=== PATIENT | male | born 1980 | race Caucasian/White ===

== ENCOUNTER 2018-08-17 12:42 | Emergency (ER) | payer OTHER ==
[~2018-08-17 12:42] MED LIST: BENADRYL25 MG PO; Bactrim Ds Tab1 EACH PO; Benadryl25 MG PO; CRUTCH3 USE; DICL75ER PO; HYDACE5 PO; HYDR1TAB94 PO; IBUP600 PO; IBUP800 PO; Keflex500 MG PO; NAPR500 PO; Naprosyn500 MG PO; Nix Lice Treatm59 ML TOP; OXYACE5T PO; Prednisone20 MG PO; TAMS.4ER PO; Zithromax250 MG PO
[2018-08-17] MEDS ORDERED: IBUP400 PO (22:09)
== END 2018-08-17 13:00 | disposition left against medical advice (07) ==
LOC: ER 12:42
DX: Z53.21 Procedure and treatment not carried out due to patient leaving prior to being seen by health care provider (principal)

== ENCOUNTER 2018-08-20 10:48 | Emergency (ER) | payer OTHER ==
[~2018-08-20] VITALS: Ht 185.4 cm; Wt 102.1 kg
[~2018-08-20 10:48] MED LIST changes: +IBUP400 PO
[2018-08-21] MEDS ORDERED: Norco 5-325 Ta1 EACH (13:02)
== END 2018-08-20 12:33 | disposition home or self-care (01) ==
LOC: ER 10:48
DX: S93.401A Sprain of unspecified ligament of right ankle, initial encounter (principal); S96.911A Strain of unspecified muscle and tendon at ankle and foot level, right foot, initial encounter; F17.210 Nicotine dependence, cigarettes, uncomplicated; Z87.442 Personal history of urinary calculi; W18.30XA Fall on same level, unspecified, initial encounter
CPT/HCPCS: 29515; 73590; 73610; 73630; 96374-59; 99283-25; J3010; L1906

== ENCOUNTER 2018-08-27 17:27 | Emergency (ER) | payer OTHER ==
[~2018-08-27] VITALS: Ht 185.4 cm; Wt 102.1 kg
[~2018-08-27 17:27] MED LIST changes: +Norco 5-325 Ta1 EACH
[2018-08-27] MEDS ORDERED: DICL25ER PO (21:15)
== END 2018-08-27 23:10 | disposition home or self-care (01) ==
LOC: ER 17:27
DX: S93.401A Sprain of unspecified ligament of right ankle, initial encounter (principal); F17.210 Nicotine dependence, cigarettes, uncomplicated; Z88.0 Allergy status to penicillin; X58.XXXA Exposure to other specified factors, initial encounter
CPT/HCPCS: 96372; 99283-25; J3010

== ENCOUNTER 2019-03-04 16:45 | Emergency (ER) | payer OTHER ==
[~2019-03-04] VITALS: Ht 213.4 cm; Wt 99.8 kg
[~2019-03-04 16:45] MED LIST changes: +DICL25ER PO
[2019-03-04 17:50] LABS: BASOPHILS ABSOLUTE AUTO 0.05 K/mm3 (0.00-0.23); BASOPHILS PERCENT AUTO 0 % (0-2); EOSINOPHILS ABSOLUTE AUTO 0.34 K/mm3 (0.00-0.68); EOSINOPHILS PERCENT AUTO 2 % (0-6); Hematocrit 43.7 % (37.0-53.0); Hemoglobin 14.4 g/dL (13.5-17.5); IMMATURE GRAN ABSOLUTE AUTO 0.06 K/mm3 (0.00-0.10); IMMATURE GRAN PERCENT AUTO 0 % (0-1); LYMPHOCYTES ABSOLUTE AUTO 1.62 K/mm3 (0.84-5.20); LYMPHOCYTES PERCENT AUTO 12 % (21-46); MONOCYTES ABSOLUTE AUTO 0.98 K/mm3 (0.16-1.47); MONOCYTES PERCENT AUTO 7 % (4-13); Mean Corpuscular HGB 32.4 pg (26.0-34.0); Mean Corpuscular Volume 98 fL (80-100); Mean Platelet Volume 9.5 fL (9.1-12.4); NEUTROPHILS ABSOLUTE AUTO 10.89 K/mm3 (1.96-9.15); NEUTROPHILS PERCENT AUTO 78 % (41-73); Platelet Count 203 K/mm3 (150-400); RDW Coefficient Variation 12.9 % (11.7-14.2); RDW Standard Deviation 46.2 fL (35.1-46.3); Red Blood Cell Count 4.45 M/mm3 (4.30-5.90); White Blood Cell Count 13.94 K/mm3 (4.00-11.30)
[2019-03-04 18:08] LABS: Alanine Aminotransfer (ALT/SGP 33 U/L (12-78); Albumin, Blood 3.2 g/dL (3.4-5.0); Albumin/Globulin Ratio 0.9 (0.8-1.8); Alk Phos 94 U/L (50-136); Anion Gap 4 mmol/L (6-16); Aspartate Aminotrans (AST/SGOT 24 U/L (12-37); Bilirubin, Total 0.4 mg/dL (0.1-1.0); Blood Urea Nitrogen 12 mg/dL (8-24); Bun/Creatinine Ratio 17.3 (12.0-20.0); CO2, Blood 30 mmol/L (21-32); Calcium, Blood 8.6 mg/dL (8.5-10.1); Chloride, Blood 100 mmol/L (98-108); Globulin, Blood 3.5 g/dL (2.2-4.0); Glomerular Filtration Rate >60 (60-); Glucose, Blood 109 mg/dL (70-99); Potassium, Blood 3.8 mmol/L (3.5-5.5); Sodium, Blood 134 mmol/L (136-145); Total Protein, Blood 6.7 g/dL (6.4-8.2)
[2019-03-04] MEDS ORDERED: Doxycycline Hy100 MG PO (18:14)
== END 2019-03-04 18:39 | disposition home or self-care (01) ==
LOC: ER 16:45
PROVIDERS: Physician Assistant
DX: L03.113 Cellulitis of right upper limb (principal); L03.114 Cellulitis of left upper limb; F15.10 Other stimulant abuse, uncomplicated; F19.10 Other psychoactive substance abuse, uncomplicated; D72.829 Elevated white blood cell count, unspecified; F17.210 Nicotine dependence, cigarettes, uncomplicated; Z88.0 Allergy status to penicillin
CPT/HCPCS: 36415; 80053; 83605; 85025; 96365; 99283-25; J3370; J7030

== ENCOUNTER 2019-04-13 12:06 | Emergency (ER) | payer OTHER ==
[~2019-04-13] VITALS: Ht 185.4 cm; Wt 99.8 kg
[~2019-04-13 12:06] MED LIST changes: +Doxycycline Hy100 MG PO
[2019-04-13] MEDS ORDERED: Norco 5-325 Ta1 EACH PO (14:18)
== END 2019-04-13 14:33 | disposition home or self-care (01) ==
LOC: ER 12:06
DX: S43.102A Unspecified dislocation of left acromioclavicular joint, initial encounter (principal); M25.412 Effusion, left shoulder; F17.210 Nicotine dependence, cigarettes, uncomplicated; Z88.0 Allergy status to penicillin; V27.4XXA Motorcycle driver injured in collision with fixed or stationary object in traffic accident, initial encounter
CPT/HCPCS: 73030; 96374; 96375; 96376; 99283-25; J1170; J2405

== ENCOUNTER 2019-11-17 19:55 | Emergency (ER) | payer OTHER ==
[~2019-11-17] VITALS: Ht 182.9 cm
[~2019-11-17 19:55] MED LIST changes: +Norco 5-325 Ta1 EACH PO
== END 2019-11-17 20:01 | disposition left against medical advice (07) ==
LOC: ER 19:55
DX: Z53.21 Procedure and treatment not carried out due to patient leaving prior to being seen by health care provider (principal)
CPT/HCPCS: 99283

== ENCOUNTER 2020-10-05 18:42 | Emergency (ER) | payer OTHER ==
[~2020-10-05] VITALS: Ht 185.4 cm; Wt 99.8 kg
[2020-10-05 20:11] LABS: BASOPHILS ABSOLUTE AUTO 0.07 K/mm3 (0.00-0.23); BASOPHILS PERCENT AUTO 1 % (0-2); EOSINOPHILS ABSOLUTE AUTO 0.24 K/mm3 (0.00-0.68); EOSINOPHILS PERCENT AUTO 2 % (0-6); Hematocrit 41.7 % (37.0-53.0); Hemoglobin 14.1 g/dL (13.5-17.5); IMMATURE GRAN ABSOLUTE AUTO 0.06 K/mm3 (0.00-0.10); IMMATURE GRAN PERCENT AUTO 0 % (0-1); LYMPHOCYTES ABSOLUTE AUTO 2.94 K/mm3 (0.84-5.20); LYMPHOCYTES PERCENT AUTO 19 % (21-46); MONOCYTES ABSOLUTE AUTO 1.24 K/mm3 (0.16-1.47); MONOCYTES PERCENT AUTO 8 % (4-13); Mean Corpuscular HGB 31.4 pg (26.0-34.0); Mean Corpuscular HGB Conc 33.8 g/dL (31.5-36.5); Mean Corpuscular Volume 93 fL (80-100); Mean Platelet Volume 9.4 fL (9.1-12.4); NEUTROPHILS ABSOLUTE AUTO 10.93 K/mm3 (1.96-9.15); NEUTROPHILS PERCENT AUTO 71 % (41-73); Platelet Count 252 K/mm3 (150-400); RDW Coefficient Variation 12.5 % (11.7-14.2); Red Blood Cell Count 4.49 M/mm3 (4.30-5.90); White Blood Cell Count 15.48 K/mm3 (4.00-11.30)
[2020-10-05 20:30] LABS: Alanine Aminotransfer (ALT/SGP 34 U/L (12-78); Albumin, Blood 3.4 g/dL (3.4-5.0); Albumin/Globulin Ratio 0.8 (0.8-1.8); Alk Phos 119 U/L (50-136); Anion Gap 4 mmol/L (6-16); Aspartate Aminotrans (AST/SGOT 16 U/L (12-37); Bilirubin, Total 0.7 mg/dL (0.1-1.0); Blood Urea Nitrogen 12 mg/dL (8-24); Bun/Creatinine Ratio 14.9 (12.0-20.0); CO2, Blood 29 mmol/L (21-32); Calcium, Blood 9.3 mg/dL (8.5-10.1); Chloride, Blood 101 mmol/L (98-108); Creatinine, Blood 0.81 mg/dL (0.60-1.20); Globulin, Blood 4.4 g/dL (2.2-4.0); Glomerular Filtration Rate >60 (60-); Glucose, Blood 89 mg/dL (70-99); Potassium, Blood 3.8 mmol/L (3.5-5.5); Sodium, Blood 134 mmol/L (136-145); Total Protein, Blood 7.8 g/dL (6.4-8.2)
== END 2020-10-05 23:06 | disposition left against medical advice (07) ==
LOC: ER 18:42
PROVIDERS: Physician Assistant
DX: L02.415 Cutaneous abscess of right lower limb (principal); Z53.21 Procedure and treatment not carried out due to patient leaving prior to being seen by health care provider
CPT/HCPCS: 80053; 83605; 85025; 99282

== ENCOUNTER 2020-11-19 03:40 | Emergency (ER) | payer OTHER ==
[~2020-11-19] VITALS: Ht 175.3 cm; Wt 81.7 kg
[2020-11-19] MEDS ORDERED: NALOXONE HC1 MG/1 ML IM (05:20)
== END 2020-11-19 05:40 | disposition home or self-care (01) ==
LOC: ER 03:40
DX: T40.1X1A Poisoning by heroin, accidental (unintentional), initial encounter (principal); R06.02 Shortness of breath; F11.90 Opioid use, unspecified, uncomplicated; F17.210 Nicotine dependence, cigarettes, uncomplicated; Z88.0 Allergy status to penicillin
CPT/HCPCS: 96374; 99285-25; J2310; J7030

== ENCOUNTER 2024-10-03 07:10 | Emergency (ER) | payer OTHER ==
[~2024-10-03] VITALS: Ht 185.4 cm; Wt 113.4 kg
[~2024-10-03 07:10] MED LIST changes: +NALOXONE HC1 MG/1 ML IM
[2024-10-03 07:55] VITALS: BP 139/83
[2024-10-03] MEDS ORDERED: METH40 PO (08:01)
[2024-10-03] MEDS ORDERED: Methadone HCL 10 MG TAB PO ONE (08:55)
== END 2024-10-03 09:13 | disposition home or self-care (01) ==
LOC: ER 07:10
DX: Z76.89 Persons encountering health services in other specified circumstances (principal); F11.20 Opioid dependence, uncomplicated; F17.210 Nicotine dependence, cigarettes, uncomplicated; Z88.0 Allergy status to penicillin; Z59.89 Other problems related to housing and economic circumstances
CPT/HCPCS: 99281; A9270

== ENCOUNTER 2024-12-06 08:35 | Emergency (ER) | payer OTHER ==
[~2024-12-06] VITALS: Ht 182.9 cm; Wt 113.4 kg
[~2024-12-06 08:35] MED LIST changes: +METH40 PO
[2024-12-06 09:23] VITALS: BP 152/97
== END 2024-12-06 10:29 | disposition home or self-care (01) ==
LOC: ER 08:35
DX: F11.93 Opioid use, unspecified with withdrawal (principal); Z53.29 Procedure and treatment not carried out because of patient's decision for other reasons; Z88.0 Allergy status to penicillin; F17.210 Nicotine dependence, cigarettes, uncomplicated
CPT/HCPCS: 99281; A9270